=== PATIENT | female | born 1990 | race Caucasian/White ===

== ENCOUNTER 2019-03-17 14:52 | Emergency (ER) | payer SELFPAY ==
[2019-03-17 15:32] VITALS: BP 135/77
[2019-03-17] MEDS: 0.9 % SODIUM CHLORIDE 1,000 ML IV ONE (15:45)
[2019-03-17] MEDS: ONDANSETRON HCL/PF 4 MG/ 2ML VIAL IVP ONE (16:00)
[2019-03-17] MEDS: KETOROLAC TROMETHAMINE 30 MG/1ML VIAL IV ONE (16:01)
[2019-03-17 16:15] LABS: BASOPHILS % 0.7 % (0.0-1.5); NEUTROPHILS # 8.5 # k/uL (1.4-7.7)
--- NOTE | 2019-03-17 16:29 | ED Physician Documentation ---
General Adult - HISTORIAN Historian: patient - HPI Stated Complaint: Abd/Flank pain Chief Complaint: General Adult Onset: hours Timing: still present Severity: moderate Further Comments: yes (Pt is a 28 yo female with R flank/abdominal pain that began 3 days ago. Pt has had malaise and nausea. No fever.) - ROS CONST: other (malaise) EYES/ENT: none CVS/RESP: none GI/: abdominal pain, problems urinating MS/SKIN/LYMPH: none - PAST HX Past History: other (C-sec) Allergies/Adverse Reactions: Allergies Allergy/AdvReac Type Severity Reaction Status Date / Time No Known Allergies Allergy Verified 03/17/19 15:33 Home Medications: Ambulatory Orders Medication Instructions Recorded Ciprofloxacin HCl [Cipro] 500 mg PO BID #20 tablet 03/17/19 Fluconazole [Diflucan] 150 mg PO QD #2 tablet 03/17/19 Levonorgestrel [Mirena] 1 b IU Q5 03/17/19 - SOCIAL HX Smoking History: cigarettes - FAMILY HX Family History: No - VITAL SIGNS Vital Signs: Vital Signs Temp Pulse Resp BP Pulse Ox 98.0 F 60 16 135/77 99 03/17/19 15:00 03/17/19 15:00 03/17/19 15:00 03/17/19 15:00 03/17/19 15:00 - REVIEWED ASSESSMENTS Nursing Assessment Reviewed: Yes Vitals Reviewed: Yes Progress - Progress Progress: NS 1 L IVF Zofran 4 mg IV Toradol 30 mg IV u preg - neg History: PT STATES LOWER ABD PAIN FOR X3 DAYS, RT SIDE FLANK PAIN, Comparison exams: None available Technique: CT Abdomen/pelvis without IV protocol. Findings: Liver, spleen, adrenals, pancreas and gallbladder are without gross irregularity given exam technique. No gallstone. Left cortical calcification. No suspicious right renal calcifications. Ureters are nondilated in their course through the abdomen and pelvis. No central calcifications. Bladder margin within normal limits. Abdominal aorta without aneurysm or peripheral atherosclerotic disease. Cardiac silhouette is not enlarged. No pericardial effusion. Bowel unopacified limiting evaluation. No abnormal dilation. Stool within the large bowel limiting sensitivity. No mesenteric inflammatory changes or free fluid. Appendix is visualized and is without inflammatory changes. IUD Osseous structures appropriate for age. Lung bases without infiltrate. No effusion. Impression: No acute upper abdominal organ inflammatory process. No abnormal bowel dilation or inflammation. No gallstone. Left nephrolithiasis. No abnormal ureteric dilation. No lung base consolidation or effusion. Rx Ciprofloxacin 500 mg. Take one every 12 hours for 10 days. Rx Diflucan 150 mg. Take one for yeast infection. Repeat after 1 week. ED Results Lab/Radiology - Lab Results Lab Results: Lab Results 03/17/19 16:05 WBC 13.20 K/ul H K/ul (4.00-12.00) RBC 4.34 M/ul M/ul (3.90-5.20) Hgb 13.3 g/dL g/dL (11.5-16.0) Hct 40.0 % % (34.5-46.5) MCV 92.0 fl fl (80.0-100.0) MCH 30.6 pg pg (28.0-34.0) MCHC 33.2 g/dL g/dL (30.0-36.0) RDW 12.4 % % (11.3-14.3) Plt Count 289 K/mm3 K/mm3 (130-400) Neut % (Auto) 64.6 % % (39.0-79.0) Lymph % (Auto) 26.7 % % (16.0-50.0) Sutton % (Auto) 5.7 % % (0.0-11.0) Eos % (Auto) 2.3 % % (0.0-6.8) Baso % (Auto) 0.7 % % (0.0-1.5) Neut # (Auto) 8.5 # k/uL H # k/uL (1.4-7.7) Lymph # (Auto) 3.5 # k/uL # k/uL (0.6-4.0) Sutton # (Auto) 0.8 # k/uL # k/uL (0.0-0.9) Eos # (Auto) 0.3 # k/uL # k/uL (0.0-0.6) Baso # (Auto) 0.1 # k/uL # k/uL (0.0-0.5) - Orders Orders: ED Orders Category Date Time Status Place IV Lock 1T Care 03/17/19 15:[address] ABD & PELVIS W/O CON Stat Exams 03/17/19 Taken CBC/PLATELET/DIFF Routine Lab 03/17/19 16:05 Completed CMP [CMP] Routine Lab 03/17/19 15:36 Received LIPASE Stat Lab 03/17/19 15:36 Received URINALYSIS Routine Lab 03/17/19 Ordered URINE HCG Stat Lab 03/17/19 15:45 Ordered 0.9 % Sodium Chloride [Normal Saline] 1,000 ml Med 03/17/19 15:35 Active IV Q1H Ketorolac Tromethamine [Toradol] Med 03/17/19 15:39 Discontinued 30 mg IV NOW ONE Ondansetron HCl/Pf [Zofran] Med 03/17/19 15:36 Discontinued 4 mg IVP NOW ONE General Adult Physical Exam - PHYSICAL EXAM GENERAL APPEARANCE: moderate distress EENT: pharynx normal NECK: normal inspection, supple RESPIRATORY: no resp distress, chest non-tender, breath sounds normal CVS: reg rate & rhythm, heart sounds normal, equal pulses ABDOMEN: soft, no organomegaly, normal bowel sounds BACK: normal inspection, CVA tenderness (R) SKIN: warm/dry, normal color EXTREMITIES: non-tender, normal range of motion, no evidence of injury, no edema NEURO: oriented X3, motor nml, sensation nml Discharge Clincal Impression: Pyelonephritis Prescriptions: Ciprofloxacin HCl [Cipro] 500 mg PO BID #20 tablet Fluconazole [Diflucan] 150 mg PO QD #2 tablet Referrals: Primary Doctor,No [Primary Care Provider] - Condition: Stable Disposition: 01 HOME, SELF-CARE Decision to Admit: NO Decision Time: 17:17
[2019-03-17 16:46] LABS: eGFR (Non-African) > 60
[2019-03-17] MEDS: cefTRIAXone SODIUM 1 GM in 0.9 % SODIUM CHLORIDE 50 ML IV ONE (16:49)
--- NOTE | 2019-03-17 16:49 | Diagnostic Imaging Report ---
THAO GROVE [facility] [id number] [facility] [address] [place], [place]. [address] Report Submission Date: Mar 17, 2019 4:25:07 PM CDT Patient Study Name: ADRIANA BAKER Date: Mar 17, 2019 4:00:18 PM CDT Modality Type: CT\SR Gender: F Description: CT ABD PELVIS W/O CO : 92 Institution: [facility] Physician: THAO GROVE Examination: CT Abdomen/pelvis History: PT STATES LOWER ABD PAIN FOR X3 DAYS, RT SIDE FLANK PAIN, Comparison exams: None available Technique: CT Abdomen/pelvis without IV protocol. Findings: Liver, spleen, adrenals, pancreas and gallbladder are without gross irregularity given exam technique. No gallstone. Left cortical calcification. No suspicious right renal calcifications. Ureters are nondilated in their course through the abdomen and pelvis. No central calcifications. Bladder margin within normal limits. Abdominal aorta without aneurysm or peripheral atherosclerotic disease. Cardiac silhouette is not enlarged. No pericardial effusion. Bowel unopacified limiting evaluation. No abnormal dilation. Stool within the large bowel limiting sensitivity. No mesenteric inflammatory changes or free fluid. Appendix is visualized and is without inflammatory changes. IUD Osseous structures appropriate for age. Lung bases without infiltrate. No effusion. Impression: No acute upper abdominal organ inflammatory process. No abnormal bowel dilation or inflammation. No gallstone. Left nephrolithiasis. No abnormal ureteric dilation. No lung base consolidation or effusion. Electronically signed on Mar 17, 2019 4:25:07 PM CDT by: Demarcus RAY
[2019-03-17 17:51] LABS: APPEARANCE,URINE CLOUDY (CLEAR); COLOR,URINE YELLOW (YELLOW); OCCULT BLOOD,URINE 2+ (NEGATIVE)
[2019-03-18 08:27] LABS: URINE HCG NEGATIVE (NEGATIVE)
== END 2019-03-17 17:17 | disposition home or self-care (01) ==
LOC: ED 14:52
DX: N05.9 Unspecified nephritic syndrome with unspecified morphologic changes (principal)
CPT/HCPCS: 74176; 80053; 81002; 83690; 85025; 87086; 96361; 96374; 99283; 99284; J0696; J1885; J2405; J7030; 81025; S1016